=== PATIENT | male | born 1985 | race Caucasian/White ===

== ENCOUNTER 2019-10-28 16:00 | Emergency (ER) | payer SELFPAY ==
[2019-10-28 20:21] LABS: #Basophils 0.1 thou/uL (0.0-0.2); #Eosinphils 0.2 thou/uL (0.0-0.7); #Lymphocytes 2.6 thou/uL (1.20-3.40); #Monocytes 0.8 thou/uL (0.11-0.59); #Neutrophils 3.2 thou/uL (1.40-6.50); %Basophils 0.8 % (0.0-1.0); %Eosinophils 2.6 % (0.0-10.0); %Lymphocytes 38.1 % (21.0-51.0); %Monocytes 11.4 % (0.0-10.0); %Neutrophils 47.1 % (42.0-75.0); Hemoglobin 14.5 g/dL (14.0-18.0); Mean Corpuscular HGB CONC 35.3 g/dL (32.0-36.0); Mean Corpuscular Volume 87.8 fL (78.0-98.0); Mean Platelet Volume 7.4 fL (7.4-10.4); Platelet Count 311 thou/uL (130-400); RBC Distribution Width 11.4 % (11.5-14.5); Red Blood Cell (RBC) Count 4.69 mill/uL (4.70-6.10); White Blood Cell (WBC) Count 6.9 thou/uL (4.8-10.8)
[2019-10-28 20:46] LABS: ALT (SGPT) 20 U/L (8-55); AST (SGOT) 16 U/L (5-34); Albumin 4.6 g/dL (3.5-5.0); Alkaline Phosphatase 51 U/L (40-110); Anion Gap 11 mmol/L (10-20); BUN (Urea Nitrogen) 13 mg/dL (8.9-20.6); Bilirubin, Total 0.4 mg/dL (0.2-1.2); Calc. Creatinine Clearance 0 mL/min (70-130); Calcium 9.5 mg/dL (7.8-10.44); Carbon Dioxide 28 mmol/L (22-29); Chloride 103 mmol/L (98-107); Estimated GFR-MDRD Greater than 90; Globulin 2.4 g/dL (2.4-3.5); Glucose 116 mg/dL (70-105); Potassium 3.9 mmol/L (3.5-5.1); Sodium 138 mmol/L (136-145)
--- NOTE | 2019-10-28 23:32 | ULT ---
Left upper extremity venous Doppler ultrasound: 10/28/2019 COMPARISON: None HISTORY: Left arm pain and edema for 3 weeks TECHNIQUE: Multiplanar grayscale sonographic imaging of the venous structures of the left upper extre mity obtained with color flow and spectral analysis FINDINGS: Left internal jugular vein, subclavian vein, axillary vein, basilic vein, ulnar vein, radia l vein, brachial vein, and cephalic vein demonstrate patency. No evidence for DVT within the left upper extremity. There is a tiny hypoechoic lesion within the subcutaneous fat in the left elbow region measuring 4 x 2 mm. This is in an area of palpable concern. A similar hypoechoic lesion is seen within the subcutaneous fat of the left mid forearm measuring 8 x 3 mm. These small hypoechoic lesions are too s mall to characterize. Clinical correlation is required. Recommend follow-up imaging if these lesions grow. IMPRESSION: No evidence for upper extremity DVT on the left. Incidental note is made of tiny nonspeci fic hypoechoic lesions within the subcutaneous fat in the areas of palpable concern as detailed above.
== END 2019-10-28 23:59 | disposition home or self-care (01) ==
LOC: ERS 16:00
DX: M79.632 Pain in left forearm (principal); F17.210 Nicotine dependence, cigarettes, uncomplicated; K21.9 Gastro-esophageal reflux disease without esophagitis; Z71.6 Tobacco abuse counseling; Z79.891 Long term (current) use of opiate analgesic; Z79.899 Other long term (current) drug therapy
CPT/HCPCS: 36415; 80053; 85025; 99406